=== PATIENT | female | born 1970 | race Caucasian/White ===

== ENCOUNTER 2017-04-20 22:39 | Emergency (ER) | payer OTHER ==
[~2017-04-20] VITALS: Ht 154.9 cm; Wt 72.5 kg
[~2017-04-20 22:39] MED LIST: FIORICET PO
[2017-04-20 22:51] VITALS: Ht 154.9 cm; Wt 72.5 kg
[2017-04-20] MEDS ORDERED: KETOROLAC 30 MG INJ IV STA (23:59)
[2017-04-21 00:25] LABS: ADD SCAN DIFF NO
--- NOTE | 2017-04-21 00:25 | ERD ---
ER Documentation Chief Complaint Date/Time DATE: 04/21/17 TIME: 00:23 Chief Complaint POSSIBLE RECTAL PAIN AROUND RECTAL AREA SINCE YESTERDAY HPI 46-year-old female presents to emergency department for complete a rectal pain, describes the pain as throbbing pain, 6/10 scale, feels some lumps in the perianal area. Patient has history of multiple abscesses before and had a history of a fistula had a surgery done for this before patient is worried she may have the same. Patient discussed the pain as throbbing pain, succession scale, is worse upon touching the area. Patient has the pain just on top of the previous incision site. ROS All systems reviewed and are negative except as per history of present illness. Medications Home Meds Active Scripts Acetamin/Butalbital/Caffeine* (Fioricet*) 1 Tab Tab, 1 TAB PO Q4H Y for PAIN LEVEL 1-5, #30 TAB Prov:ROB OLSEN PA-C 05/09/16 Allergies Allergies: Coded Allergies: No Known Allergies (Verified Allergy, Mild, 10/04/14) PMhx/Soc History of Surgery: Yes (TUBAL LIGATION, cyst removal, fistula removal) Anesthesia Reaction: No Hx Neurological Disorder: No Hx Respiratory Disorders: No Hx Cardiac Disorders: No Hx Psychiatric Problems: No Hx Miscellaneous Medical Probl: No Hx Alcohol Use: Yes (socially) Hx Substance Use: No Hx Tobacco Use: No Smoking Status: Never smoker FmHx Family History: No coronary disease, No diabetes, No other Physical Exam Vitals Vital Signs Date Time Temp Pulse Resp B/P Pulse Ox O2 Delivery O2 Flow Rate FiO2 04/20/17 22:51 97.7 94 18 139/94 97 Physical Exam GENERAL: The patient is well developed and appropriate for usual state of health, in no apparent distress. CHEST: Clear to auscultation bilaterally. There are no rales, wheezes or rhonchi. HEART: Regular rate and rhythm. No murmurs, clicks, rubs or gallops. No S3 or S4. ABDOMEN: Soft, nontender and nondistended. Good bowel sounds. No rebound or guarding. No gross peritonitis. No gross organomegaly or masses. No Kwon sign or McBurney point tenderness. BACK: No midline or flank tenderness. EXTREMITIES: Equal pulses bilaterally. There is no peripheral clubbing, cyanosis or edema. No focal swelling or erythema. Full range of motion. Grossly neurovascularly intact. NEURO: Alert and oriented. Cranial nerves 2-12 intact. Motor strength in all 4 extremities with 5/5 strength. Sensation grossly intact. Normal speech and gait. SKIN: There is no apparent rash or petechia. The skin is warm and dry. HEMATOLOGIC AND LYMPHATIC: There is no evidence of excessive bruising or lymphedema. No gross cervical, axillary, or inguinal lymphadenopathy. Rectal: Good rectal tone, no hemorrhoid noted, mild tenderness on palpation on top of the previous incision site noted, with redness noted, no palpable fluctuance noted. Mild induration noted. Result Diagram: 04/21/17 0010 04/21/17 0010 Results 24 hrs Laboratory Tests Test 04/21/17 00:10 White Blood Count 8.110^3/ul Red Blood Count 4.1410^6/ul Hemoglobin 12.6g/dl Hematocrit 35.8% Mean Corpuscular Volume 86.5fl Mean Corpuscular Hemoglobin 30.4pg Mean Corpuscular Hemoglobin Concent 35.2g/dl Red Cell Distribution Width 11.6% Platelet Count 28111^3/UL Mean Platelet Volume 9.7fl Neutrophils % 64.5% Lymphocytes % 28.0% Monocytes % 5.8% Eosinophils % 1.1% Basophils % 0.4% Nucleated Red Blood Cells % 0.0/100WBC Neutrophils # 5.210^3/ul Lymphocytes # 2.310^3/ul Monocytes # 0.510^3/ul Eosinophils # 0.110^3/ul Basophils # 0.010^3/ul Nucleated Red Blood Cells # 0.010^3/ul Sodium Level 142mmol/L Potassium Level 3.8mmol/L Chloride Level 105mmol/L Carbon Dioxide Level 26mmol/L Anion Gap 15 Blood Urea Nitrogen 20mg/dl Creatinine 0.77mg/dl Glucose Level 101mg/dl Calcium Level 9.6mg/dl Total Bilirubin 0.3mg/dl Direct Bilirubin 0.00mg/dl Indirect Bilirubin 0.3mg/dl Aspartate Amino Transf (AST/SGOT) 21IU/L Alanine Aminotransferase (ALT/SGPT) 31IU/L Alkaline Phosphatase 77IU/L Total Protein 8.0g/dl Albumin 4.8g/dl Globulin 3.20g/dl Albumin/Globulin Ratio 1.50 Current Medications Medications (Trade) Dose Ordered Sig/Albert Route PRN Reason Start Time Stop Time Status Last Admin Dose Admin Ketorolac Tromethamine 30 mg 30 mg ONCE STAT IV 04/20/17 23:59 04/21/17 00:05 DC 04/21/17 00:24 Sodium Chloride (NS) 100 ml @ ud STK-MED ONCE .ROUTE 04/21/17 00:43 04/21/17 00:44 DC 04/21/17 01:01 Iohexol (Omnipaque 300mg/ ml) 150 ml STK-MED ONCE .ROUTE 04/21/17 00:43 04/21/17 00:44 DC 04/21/17 01:00 Patient was given medication for pain here in emergency department, after treatment, patient verbalized feeling much better. Patient's pain is improved. Clindamycin was given here in emergency department, tolerated medication well. PROCEDURE: CT abdomen and pelvis with intravenous contrast. CLINICAL INDICATION: Perianal abscess.. TECHNIQUE: CT of the abdomen/pelvis was performed utilizing axial images with reconstructions in sagittal and coronal planes after uneventful administration of 100 cc Omnipaque 300. The administered radiation dose is CTDI 17 mGy, DLP 997 mGy-cm. COMPARISON: No pertinent prior examinations were submitted for comparison. FINDINGS: Visualized Chest: The visualized lung bases are clear. Abdomen: The liver, spleen, pancreas, gallbladder,and adrenal glands are unremarkable. The kidneys are without hydronephrosis. No definite urinary calculi are seen. There is no evidence of bowel obstruction. The appendix is normal. No intra- abdominal free air is seen. Some diverticula are noted along the sigmoid colon without diverticulitis. There is no evidence of intra-abdominal adenopathy or free fluid. Pelvis: There is no evidence of pelvic adenopathy. The uterus and ovaries are without enlargement. The urinary bladder is unremarkable. There is no pelvic free fluid. There is a 1.7 x 2.7 cm area of heterogeneous enhancement within the subcutaneous fat in the gluteal fold on the left. This has some mild surrounding inflammatory changes and is adjacent to the anus. No extension into the perirectal space is identified. Osseous structures: Unremarkable. IMPRESSION: Area of heterogeneous enhancement in the subcutaneous fat in the gluteal fold on the left compatible with a small abscess or phlegmon. RPTAT: HIKT .Kiran López MD, Date Time Electronically viewed and signed by .Kiran López MD, MD on 04/21/2017 02:16 .T/ CC: AMANDA JACKSON NP Procedures/MDM Medical: decision making: Patient's symptoms of leg is consistent with a perianal abscess, discussed case with my attending physician, Dr. Cartagena, will treat patient with IV clindamycin, patient needs to see a colorectal surgeon for possible removal of the abscess since it is near the perianal area and patient has history of fistula of affected area. No symptoms of sepsis at this time. Patient appears well and is hemodynamically stable. As per recommendation by Dr. Cartagena, patient will be sent home with clindamycin and Bactrim at home, tramadol for pain, is advised to see colorectal surgeon within 2-3 days or further evaluation, return to emergency department for an worsening symptoms. Disposition: Home. Stable. Departure Diagnosis: Primary Impression: Perianal abscess Condition: Stable Patient Instructions: Karol-Anal Abscess, Abx Only Additional Instructions: take meds as prescribed, see colorectal surgeon in 2-3 days AMANDA JACKSON NP Apr 21, 2017 00:25
[2017-04-21 00:27] LABS: BASOPHILS % 0.4 % (0.0-2.0); EOSINOPHILS # 0.1 10^3/ul (0.0-0.5); EOSINOPHILS % 1.1 % (0.0-7.0); HEMATOCRIT 35.8 % (37.0-47.0); HEMOGLOBIN 12.6 g/dl (12.0-16.0); LYMPHOCYTES # 2.3 10^3/ul (0.8-2.9); MEAN CORPUSCULAR HEMOGLOBIN 30.4 pg (29.0-33.0); MEAN CORPUSCULAR HGB CONC 35.2 g/dl (32.0-37.0); MEAN CORPUSCULAR VOLUME 86.5 fl (82.0-101.0); MEAN PLATELET VOLUME 9.7 fl (7.4-10.4); MONOCYTE # 0.5 10^3/ul (0.3-0.9); MONOCYTES % 5.8 % (0.0-11.0); NEUTROPHIL # 5.2 10^3/ul (1.6-7.5); NEUTROPHILS % 64.5 % (39.0-77.0); PLATELET COUNT 288 10^3/UL (140-415); RED BLOOD COUNT 4.14 10^6/ul (4.20-5.40); RED CELL DISTRIBUTION WIDTH 11.6 % (11.5-14.5); WHITE BLOOD COUNT 8.1 10^3/ul (4.8-10.8)
[2017-04-21] MEDS ORDERED: SOD CHLORIDE 0.9% 100 ML ONE (00:43)
[2017-04-21] MEDS ORDERED: IOHEXOL 300MG/ML 150 ML BTL ONE (00:43)
[2017-04-21 00:47] LABS: ALBUMIN 4.8 g/dl (3.3-4.9); ALBUMIN/GLOBULIN RATIO 1.5; BILIRUBIN,INDIRECT 0.3 mg/dl (0-1.1); BILIRUBIN,TOTAL 0.3 mg/dl (0.2-1.3); CALCIUM 9.6 mg/dl (8.4-10.2); CREATININE 0.77 mg/dl (0.44-1.00); POTASSIUM 3.8 mmol/L (3.5-5.1)
--- NOTE | 2017-04-21 02:17 | RADRPT ---
PROCEDURE: CT abdomen and pelvis with intravenous contrast. CLINICAL INDICATION: Perianal abscess.. TECHNIQUE: CT of the abdomen/pelvis was performed utilizing axial images with reconstructions in s agittal and coronal planes after uneventful administration of 100 cc Omnipaque 300. The administered radiation dose is CTDI 17 mGy, DLP 997 mGy-cm. COMPARISON: No pertinent prior examinations were submitted for comparison. FINDINGS: Visualized Chest: The visualized lung bases are clear. Abdomen: The liver, spleen, pancreas, gallbladder,and adrenal glands are unremarkable. The kidneys are without hydronephrosis. No definite urinary calculi are seen. There is no evidence of bowel obstruction. The appendix is normal. No intra-abdominal free air is seen. Some diverticula are noted along the sigmoid colon without diverticulitis. There is no evidence of intra-abdominal adenopathy or free fluid. Pelvis: There is no evidence of pelvic adenopathy. The uterus and ovaries are without enlargement. The uri nary bladder is unremarkable. There is no pelvic free fluid. There is a 1.7 x 2.7 cm area of heterogeneous enhancement within the subcutaneous fat in the gluteal fold on the left. This has some mild surrounding inflammatory changes and is adjacent to the anus. No extension into the perirectal space is identified. Osseous structures: Unremarkable. IMPRESSION: Area of heterogeneous enhancement in the subcutaneous fat in the gluteal fold on the left compatible with a small abscess or phlegmon. RPTAT: HIKT .Kiran López MD, Date Time Electronically viewed and signed by .Kiran López MD, MD on 04/21/2017 02:16 .T/
[2017-04-21] MEDS ORDERED: CLINDAMYCIN 600 MG/D5W (PMX) 50 ML IVPB SCH (02:30)
[2017-04-21] MEDS ORDERED: TRAM50TA2 PO (02:31)
[2017-04-21] MEDS ORDERED: SULF1TAB31 PO (02:31)
[2017-04-21] MEDS ORDERED: CLIN-73 PO (02:31)
[2017-04-21] MEDS ORDERED: IBUP800T25 PO (02:31)
[2017-04-21 03:45] VITALS: BP 92/61; PULSE 74; RESP 16
== END 2017-04-21 03:46 | disposition home or self-care (01) ==
LOC: FTE 22:39
DX: K61.0 Anal abscess (principal)
CPT/HCPCS: 74177; 80053; 85025; 96374; 96375; J1885; Q9967; Z7502; Z7610